=== PATIENT | male | born 1985 | race American Indian/Alaskan Native ===

== ENCOUNTER 2017-07-19 00:33 | Emergency (ER) | payer OTHER ==
[2017-07-19 01:53] LABS: Basophils % (Auto) 1.1 % (0.0-1.8); Eosinophils % (Auto) 0.8 % (0.0-4.3); Hematocrit 45.1 % (35.5-45.6); Hemoglobin 15.2 gm/dl (11.8-15.2); Mean Corpuscular HGB Conc 34 % (32-34); Mean Corpuscular Hemoglobin 34 pg (28-32); Mean Corpuscular Volume 101 fl (84-94); Platelet Count 255 K/mm3 (140-440); Red Blood Count 4.47 M/mm3 (3.65-5.03); Red Cell Distribution Width 12.9 % (13.2-15.2); White Blood Count 13.4 K/mm3 (4.5-11.0)
[2017-07-19 02:02] LABS: Anion Gap 19 mmol/L; BUN/Creatinine Ratio 11; Blood Urea Nitrogen 8 mg/dL (9-20); Calcium 9.1 mg/dL (8.4-10.2); Carbon Dioxide 22 mmol/L (22-30); Chloride 99.8 mmol/L (98-107); Glucose 101 mg/dL (75-100); Potassium 3.3 mmol/L (3.6-5.0); Sodium 137 mmol/L (137-145)
[2017-07-19] MEDS ORDERED: MORPHINE IV ONE (09:27)
[2017-07-19] MEDS ORDERED: ZOFRAN IV ONE (09:27)
--- NOTE | 2017-07-19 09:32 | Emergency Department Report ---
HPI - General Chief Complaint: Chest Pain Time Seen by Provider: 07/19/17 09:20 - [facility] HPI: Room 3 The patient is a 32-year-old male presented with a chief complaint of left chest pain radiating to his back. The patient states symptoms began yesterday morning at 11:00. Patient describes the pain is burning and worsens when he takes a deep breath. Patient denies shortness of breath, nausea/vomiting or diaphoresis. Patient denies any recent flights or long car trips. Patient denies fever, cough or any other forms of pain. Location: Left chest Duration: Constant since 11:00 yesterday Quality: Burning Severity: 01/06 Modifying factors: Inspiration worsened pain Context: [see above] Mode of transportation: [not driving] ED Past Medical Hx - Past Medical History Previous Medical History?: No - Surgical History Past Surgical History?: No - Family History Family history: no significant - Social History Smoking Status: Current Every Day Smoker (1/2 pack per day) Substance Use Type: Alcohol (occasional) ED Review of Systems ROS: Stated complaint: BACK PAIN Other details as noted in HPI Constitutional: denies: diaphoresis Eyes: denies: eye pain ENT: denies: throat pain Respiratory: denies: cough, shortness of breath Cardiovascular: chest pain Gastrointestinal: denies: abdominal pain, nausea, vomiting Genitourinary: denies: dysuria Musculoskeletal: back pain Neurological: denies: headache Physical Exam - Physical Exam Vital Signs: Vital Signs 07/19/17 07/19/17 07/19/17 00:47 08:06 08:15 Temperature 98.6 F Pulse Rate 82 60 60 Respiratory 18 13 13 Rate Blood Pressure 130/82 Blood Pressure 134/72 [Right] O2 Sat by Pulse 97 96 Oximetry 07/19/17 08:40 Temperature Pulse Rate Respiratory 13 Rate Blood Pressure Blood Pressure [Right] O2 Sat by Pulse 96 Oximetry Physical Exam: GENERAL: The patient is well-developed well-nourished male lying on stretcher not appearing to be in acute distress. [] HEENT: Normocephalic. Atraumatic. Extraocular motions are intact. Patient has moist mucous membranes. NECK: Supple. Trachea midline CHEST/LUNGS: Clear to auscultation. There is no respiratory distress noted. HEART/CARDIOVASCULAR: Regular. There is no tachycardia. There is no gallop rub or murmur. ABDOMEN: Abdomen is soft, nontender. Patient has normal bowel sounds. There is no abdominal distention. SKIN: There is no rash. There is no edema. There is no diaphoresis. NEURO: The patient is awake, alert, and oriented. The patient is cooperative. The patient has normal speech MUSCULOSKELETAL: There is no evidence of acute injury. ED Course Vital Signs 07/19/17 07/19/17 07/19/17 00:47 08:06 08:15 Temperature 98.6 F Pulse Rate 82 60 60 Respiratory 18 13 13 Rate Blood Pressure 130/82 Blood Pressure 134/72 [Right] O2 Sat by Pulse 97 96 Oximetry 07/19/17 08:40 Temperature Pulse Rate Respiratory 13 Rate Blood Pressure Blood Pressure [Right] O2 Sat by Pulse 96 Oximetry ED Medical Decision Making - Lab Data Result diagrams: 07/19/17 01:31 07/19/17 01:31 Laboratory Tests 07/19/17 07/19/17 07/19/17 01:31 01:31 04:10 WBC 13.4 H RBC 4.47 Hgb 15.2 Hct 45.1 MCV 101 H MCH 34 H MCHC 34 RDW 12.9 L Plt Count 255 Lymph % (Auto) 25.6 Clarke % (Auto) 5.8 Eos % (Auto) 0.8 Baso % (Auto) 1.1 Lymph # 3.4 Clarke # 0.8 Eos # 0.1 Baso # 0.1 Seg Neutrophils % 66.7 Seg Neutrophils # 9.0 H Sodium 137 Potassium 3.3 L Chloride 99.8 Carbon Dioxide 22 Anion Gap 19 BUN 8 L Creatinine 0.7 L Estimated GFR > 60 BUN/Creatinine Ratio 11 Glucose 101 H Calcium 9.1 Troponin T < 0.010 < 0.010 07/19/17 08:11 WBC RBC Hgb Hct MCV MCH MCHC RDW Plt Count Lymph % (Auto) Clarke % (Auto) Eos % (Auto) Baso % (Auto) Lymph # Clarke # Eos # Baso # Seg Neutrophils % Seg Neutrophils # Sodium Potassium Chloride Carbon Dioxide Anion Gap BUN Creatinine Estimated GFR BUN/Creatinine Ratio Glucose Calcium Troponin T < 0.010 - EKG Data -: EKG Interpreted by Al EKG shows normal: sinus rhythm Rate: normal - EKG Data When compared to previous EKG there are: previous EKG unavailable Interpretation: nonspecific ST-T wave yuri (T-wave inversion in lead 3, V3), other (S1 Q3 T3?) - Medical Decision Making I discussed with patient my concern for PE given the findings of S1 Q3 T3 on his EKG and his history of chest pain radiating to the back with a pleuritic component. I express that this does not mean that he definitely has a PE but a CT scan to evaluate for this is warranted. Patient verbalizes understanding and states he believes he only has a pulled muscle does not wish to have a CT scan performed. Patient verbalized understanding of increased morbidity and/or mortality should he leave the hospital AGAINST MEDICAL ADVICE. Patient advised to return to the emergency department for further evaluation should he change his mind - Differential Diagnosis ACS, pericarditis, PE, GERD Critical care attestation.: If time is entered above; I have spent that time in minutes in the direct care of this critically ill patient, excluding procedure time. ED Disposition Clinical Impression: Chest pain Disposition: [id number]-07 LEFT AGAINST MED ADVICE Is pt being admited?: No Does the pt Need Aspirin: Yes Condition: Undetermined Instructions: Chest Pain (ED) Referrals: PRIMARY CARE, [Primary Care Provider] - 3-5 Days Time of Disposition: 09:59 (patient leaving AMA)
[2017-07-19 10:10] VITALS: BP 136/84
== END 2017-07-19 10:00 | disposition left against medical advice (07) ==
LOC: ED 00:33
DX: R07.89 Other chest pain (principal)
CPT/HCPCS: 36415; 80048; 84484; 85025; 93005; 93010; 99284